=== PATIENT | female | born 1960 | race Caucasian/White ===

== ENCOUNTER 2016-08-25 13:10 | Emergency (ER) | payer SELFPAY ==
[2016-08-25 13:43] VITALS: BP 103/48; PULSE 83; RESP 14; TEMP 98.2; O2SAT 96
[2016-08-25 13:57] LABS: COLOR YELLOW; LEUKOCYTE ESTERASE,URINE TRACE (NEGATIVE); NITRITE,URINE POSITIVE (NEGATIVE)
[2016-08-25 14:19] LABS: BACTERIA 3+ /hpf (NONE SEEN); RENAL EPITHELIAL CELLS OCCASIONAL /hpf (NONE SEEN); WBC,URINE 50-182 /hpf (0-3)
--- NOTE | 2016-08-25 14:26 | UCPHY ---
H & P Time Seen by Provider: 08/25/16 14:15 Patient Type: New HPI/ROS: HPI: 55-year-old female presents to urgent care with chief concern urinary burning and frequency that onset suddenly yesterday. Reports irritation of the urinary tract that began 4 days ago. Denies fever, chills, nausea, vomiting, abdominal pain, back or flank pain, or hematuria. No aggravating or alleviating factors. Has used Uristat and cranberry pills with minimal improvement. ROS:10 point review of systems is negative other than as stated in HPI Smoking Status: Former smoker Physical Exam: Vital signs stable, reviewed by me General: Awake, alert, calm, cooperative. No acute distress. Head: Normalocephalic. Atraumatic. EENT: PERRLA. EOMI. No pallor or injection. Anicteric. No nystagmus. No injection. Neck: Supple, nontender. No lymphadenopathy. Full range of motion. No meningismus. Respiratory: Breathing unlabored. Breath sounds equal bilaterally and clear to auscultation. No adventitious sounds. CV: Chest nontender, atraumatic. Heart rate regular. No murmur, distal pulses 2+ bilaterally. Brisk cap refill all extremities. GI: Abdomen soft, nontender. Bowel sounds normoactive and positive x4 quadrants. : No suprapubic tenderness. No CVA or flank tenderness. Neuro: Alert. Oriented x 3. Speech clear. Nonfocal cranial nerves throughout. Sensation intact all extremities. Skin: Skin warm, dry, intact. Extremities: Moves all extremities Constitutional: Initial Vital Signs Temperature (C) 36.8 C 08/25/16 13:37 Heart Rate 83 08/25/16 13:37 Respiratory Rate 14 08/25/16 13:37 Blood Pressure 103/48 L 08/25/16 13:37 O2 Sat (%) 96 08/25/16 13:37 O2 Delivery Mode Room Air Allergies/Adverse Reactions: Penicillins Allergy (Verified 08/25/16 13:37) Home Medications: Medication Instructions Recorded Cephalexin [Keflex (*)] 500 mg PO BID #14 cap 08/25/16 Medical Decision Making - Data Points Laboratory Results: 08/25/16 13:50 Urine Color YELLOW Urine Appearance HAZY Urine pH 6.0 (5.0-7.5) Ur Specific [place] 1.020 (1.002-1.030) Urine Protein NEGATIVE (NEGATIVE) Urine Ketones NEGATIVE (NEGATIVE) Urine Blood NEGATIVE (NEGATIVE) Urine Nitrate POSITIVE H (NEGATIVE) Urine Bilirubin NEGATIVE (NEGATIVE) Urine Urobilinogen 0.2 EU (0.2-1.0) Ur Leukocyte Esterase TRACE H (NEGATIVE) Urine RBC 3-5 H /hpf (0-3) Urine WBC 50-182 H /hpf (0-3) Ur Epithelial Cells 1+ /lpf (NONE-1+) Ur Renal Epithelial Cell OCCASIONAL H /hpf (NONE SEEN) Urine Bacteria 3+ H /hpf (NONE SEEN) Urine Glucose NEGATIVE (NEGATIVE) Departure - Departure Clinical Impression: UTI (urinary tract infection) Qualifiers: Urinary tract infection type: acute cystitis Instructions: Urinary Tract Infection in Women (ED) Additional Instructions: Plan: You have a urinary tract infection. Drink plenty of fluids. Take the Keflex antibiotic twice daily for 1 week. Take an [id number] probiotic and/or eat yogurt while taking this antibiotic. Urostat or Azo-Standard available [id number] as needed for bladder spasm and pain Return if flank pain, fever, nausea or vomiting, or feeling worse. Return if no improvement in symptoms in 48 hours. follow up as directed Referrals: NONE *PRIMARY CARE P,. [Primary Care Provider] - As per Instructions Lisseth Vick NP [Certified Nurse Practioner] - As per Instructions Prescriptions: Cephalexin [Keflex (*)] 500 mg PO BID #14 cap - PQRS PQRS Measurement: Not applicable
== END 2016-08-25 14:28 | disposition home or self-care (01) ==
LOC: CED 13:10
DX: N39.0 Urinary tract infection, site not specified (principal); Z87.891 Personal history of nicotine dependence
CPT/HCPCS: 81003-PO; 81015-PO; G0463-PO

== ENCOUNTER → 2016-11-04 | Outpatient (CLI) | payer BC, OTHER | LOC: BRMIMAGING 14:57 | DX: Z12.31 Encounter for screening mammogram for malignant neoplasm of breast (principal) | CPT/HCPCS: G0202 ==

== ENCOUNTER → 2016-11-14 | Outpatient (CLI) | payer OTHER | LOC: BRMIMAGING 13:12 | PROVIDERS: ATTEND Nurse Practitioner | DX: E03.9 Hypothyroidism, unspecified (principal) ==

== ENCOUNTER → 2016-11-25 | Outpatient (CLI) | payer OTHER | LOC: BRMIMAGING 09:20 | PROVIDERS: ATTEND Nurse Practitioner | DX: Z12.39 Encounter for other screening for malignant neoplasm of breast (principal); R92.8 Other abnormal and inconclusive findings on diagnostic imaging of breast | CPT/HCPCS: 76641-PO; G0206 ==

== ENCOUNTER → 2018-01-22 | Outpatient (CLI) | payer OTHER | LOC: BRMIMAGING 13:46 | PROVIDERS: ATTEND Nurse Practitioner Women's Health | DX: Z12.31 Encounter for screening mammogram for malignant neoplasm of breast (principal) ==

== ENCOUNTER → 2018-02-19 | Outpatient (CLI) | payer OTHER | LOC: BRMIMAGING 14:03 | PROVIDERS: ATTEND Nurse Practitioner Women's Health | DX: Z13.820 Encounter for screening for osteoporosis (principal); M85.89 Other specified disorders of bone density and structure, multiple sites; Z78.0 Asymptomatic menopausal state; Z85.42 Personal history of malignant neoplasm of other parts of uterus ==